=== PATIENT | male | born 1945 | race Caucasian/White ===

== ENCOUNTER 2018-07-27 18:25 | Emergency (ER) | END 2018-07-28 15:09 | disposition short-term general hospital (02) ==

== ENCOUNTER 2018-08-05 11:01 | Emergency (ER) | END 2018-08-05 17:36 | disposition home or self-care (01) ==

== ENCOUNTER 2018-08-05 18:23 | Emergency (ER) | END 2018-08-05 22:51 | disposition home or self-care (01) ==

== ENCOUNTER 2018-08-06 14:32 | Emergency (ER) | END 2018-08-06 19:14 | disposition home or self-care (01) ==